=== PATIENT | male | born 1955 | race Caucasian/White ===

== ENCOUNTER 2018-10-20 14:16 | Emergency (ER) | payer OTHER ==
[~2018-10-20] VITALS: Ht 167.6 cm; Wt 78.5 kg
[2018-10-20 14:22] VITALS: Ht 167.6 cm; Wt 78.5 kg
[2018-10-20 16:20] VITALS: BP 147/81
== END 2018-10-20 16:20 | disposition home or self-care (01) ==
LOC: ED 14:16
DX: S60.221A Contusion of right hand, initial encounter (principal); I10 Essential (primary) hypertension; X50.0XXA Overexertion from strenuous movement or load, initial encounter; Y93.89 Activity, other specified; Y92.89 Other specified places as the place of occurrence of the external cause; Y99.8 Other external cause status
CPT/HCPCS: Q0092